=== PATIENT | female | born 1935 | race Caucasian/White ===

== ENCOUNTER → 2016-09-20 | Outpatient (CLI) | payer MEDICARE, OTHER ==
[2016-09-20 14:52] LABS: Blood Urea Nitrogen 21 mg/dL (7-17); Non-African American GFR(MDRD) >60 (>60 ml/min/1.73 sqM)
== END | disposition home or self-care (01) ==
LOC: LABWHC1 14:08
PROVIDERS: ATTEND Physical Medicine & Rehabilitation
DX: Z01.818 Encounter for other preprocedural examination (principal); N28.9 Disorder of kidney and ureter, unspecified
CPT/HCPCS: 36415; 82565; 84520

== ENCOUNTER → 2016-10-06 | Outpatient (CLI) | payer MEDICARE, OTHER ==
--- NOTE | 2016-10-06 14:06 | US ---
EXAMINATION TYPE: US pelvic complete DATE OF EXAM: 10/06/2016 8:49 AM COMPARISON: NONE CLINICAL HISTORY: R93.8 abn findings. Pt states abnormal MRI at different facility, pt states known u terine fibroid x many years TECHNIQUE: Transabdominal (TA) Date of LMP: 30 yrs ago EXAM MEASUREMENTS: Uterus: 8.4 x 4.1 x 5.1 cm Endometrial Stripe: Unable to visualize Right Ovary: 1.4 x 0.8 x 0.8 cm Left Ovary: 1.4 x 1.0 x 1.1 cm Pt did not want TV at this time 1. Uterus: Anteverted Heterogeneous with hyperechoic lesion= 4.2 x 3.8 x 3.5 cm 2. Endometrium: Unable to visualize 3. Right Ovary: wnl 4. Left Ovary: wnl 5. Bilateral Adnexa: wnl 6. Posterior cul-de-sac: wnl IMPRESSION: 1. Hyperechoic intrauterine lesion could reflect aleiomyoma. Correlate clinically.
== END ==
LOC: RADUSMAIN 08:26
PROVIDERS: ATTEND Internal Medicine
DX: N85.9 Noninflammatory disorder of uterus, unspecified (principal)
CPT/HCPCS: 76856

== ENCOUNTER → 2016-10-06 | Outpatient (CLI) | payer MEDICARE, OTHER ==
--- NOTE | 2016-10-06 10:23 | CT ---
EXAMINATION TYPE: CT thoracic spine wo con DATE OF EXAM: 10/06/2016 9:08 AM COMPARISON: NONE HISTORY: Patient complains of low back pain. CT DLP: 1075 mGycm Automated exposure control for dose reduction was used. Unenhanced CT of the thoracic spine was perfo rmed with bone and soft tissue window settings submitted. Axial coronal and sagittal images are revie wed. FINDINGS: There is no evidence for fracture or osseous lesion. There is mild ventral spondylosis. Moderate dege nerative narrowing at T6-7 and T7-8 and T8-9. I do not see evidence for significant disc bulge or her niation. No evidence for central stenosis. IMPRESSION: DEGENERATIVE CHANGES DISCUSSED. NO EVIDENCE FOR NATACHA HERNIATION OR CENTRAL STENOSIS.
== END | disposition home or self-care (01) ==
LOC: RADCTMAIN 08:31
PROVIDERS: ATTEND Physical Medicine & Rehabilitation
DX: M47.814 Spondylosis without myelopathy or radiculopathy, thoracic region (principal)
CPT/HCPCS: 72128; 76856

== ENCOUNTER → 2017-06-05 | Outpatient (CLI) | payer MEDICARE, OTHER ==
--- NOTE | 2017-06-06 09:35 | MM ---
Reason for exam: screening (asymptomatic). Last mammogram was performed 3 years and 11 months ago. History: Patient is postmenopausal, has history of breast cancer at age 64, and history of other cancer. Benign stereotactic core biopsy of the right breast, 2002. Mastectomy of the left breast, 1999. Took hormonal contraceptives for 3 years. Physical Findings: A clinical breast exam by your physician is recommended on an annual basis and results should be correlated with mammographic findings. MG 3D Scr Dano Unilateral W/Cad Bilateral CC and MLO view(s) were taken. Prior study comparison: July 10, 2013, mammogram, performed at [facility]. July 04, 2012, mammogram, performed at [facility]. There are scattered fibroglandular densities. Stable calcifications in the right breast. There is no discrete abnormality. No significant changes when compared with prior studies. ASSESSMENT: Benign, BI-RAD 2 RECOMMENDATION: Routine screening mammogram of the right breast in 1 year.
== END | disposition home or self-care (01) ==
LOC: RADMAMWWP 07:56
PROVIDERS: ATTEND Internal Medicine
DX: Z12.31 Encounter for screening mammogram for malignant neoplasm of breast (principal)
CPT/HCPCS: 77067